=== PATIENT | female | born 1995 | race Caucasian/White ===

== ENCOUNTER 2017-11-25 16:41 | Emergency (ER) | payer MEDICAID ==
[~2017-11-25] VITALS: Ht 157.5 cm; Wt 93.0 kg
[2017-11-25] MEDS ORDERED: IBUPROFEN 600MG TABLET PO ONE (17:00)
[2017-11-25 22:10] VITALS: BP 105/66
== END 2017-11-25 22:52 | disposition home or self-care (01) ==
LOC: ER 22:08
DX: H66.90 Otitis media, unspecified, unspecified ear (principal); R50.9 Fever, unspecified
CPT/HCPCS: 87070; 87430; 99284; Z7610; 99283